=== PATIENT | female | born 1955 | race Caucasian/White ===

== ENCOUNTER 2021-10-15 10:05 | Emergency (ER) | payer BC ==
--- OUTSIDE RECORDS SUMMARY | 2021-10-15 10:07 | XMS REPORT | Continuity of Care Document ---
:1955 Author Organization [facility] t Address [address] [place] [address] Care Team Providers Name Role Phone Dedrick Yanez Attending Clinician Unavailable BRIDGETTE Attending Clinician Unavailable ORLANDO Attending Clinician Unavailable Cathy BRAGA Admitting Clinician Unavailable Payers Payer Name Policy Type Policy Number Effective Date Expiration Date S ource Problems This patient has no known problems. Allergies, Adverse Reactions, Alerts Allergy Allergy Status Severity Reaction(s) Onset Inactive Treating Comm ents Source Name Type Date Date Clinician Penicill DA Active U 2020-0 [facility] ciproflo DA Active SV 2020-0 [facility] xacin 04-06 00:[facility]: [facility] Penicill DA Active U UNKNOWN 2020-0 [facility] ins 04-06 [facility] ciproflo DA Active SV ANAPHYLAXIS 2020-0 [facility] xacin 04-06 00:00: [facility] Penicill DA Active U 2020-0 [facility] ins 03-26 00[facility]00: [facility] ciproflo DA Active SV 2020-0 [facility] xacin 03-26 00:00: [facility] Penicill DA Active U UNKNOWN 2020-0 [facility] ins 03-26 00:[facility]: [facility] ciproflo DA Active SV ANAPHYLAXIS 2020-0 [facility] xacin 03-26 00:00: [facility] Medications This patient has no known medications. Procedures This patient has no known procedures. Encounters Start End Encounter Admission Attending Care Care Encounter Source Date/Time Date/Time Type Type Clinicians Facility Department ID 2021-04-06 2021-04-06 Outpatient SD Rodriguez DAYS [id number] [facility] 09:24:00 09:24:00 Adeel [id number] [facility] 2021-03-26 2021-03-26 Inpatient SD Rodriguez SURG [id number] [facility] 10:00:00 10:00:00 Adeel [id number] [facility] 2021-03-18 2021-03-18 Outpatient SD Rodriguez RADI [id number] [facility] 08:51:00 08:51:00 Adeel [id number] [facility] [place] [facility] 2020-12-23 2020-12-23 Outpatient BRIDGETTE [facility] [id number] [place] 00:00:00 00:00:00 ISAC [address] 2020-12-02 2020-12-02 Outpatient [facility] [id number] [place] 00:00:00 00:00:[address] 2020-04-21 2020-04-21 Outpatient ORLANDO [facility] [id number] [place] 00:00:00 00:00:00 ARJUN [address] Results Test Description Test Time Test Comments Results Result [facility] e Comments - MRI LW JNT W/O 2021-03-18 CONT LT 16:28:00 [facility] : 1955 Sex: F Patient Name: ALMAZ VILLAVICENCIO Unit No: [id number] EXAMS: CPT CODE: [id number] MRI LW JNT W/[place] [id number] MRI OF THE LEFT KNEE DIAGNOSIS: Comparison is made with the previous examination of August 31, 2012. On the current examination there is a horizontal tear of the lateral meniscus through the superior articular surface. Progressive chondromalacia and degenerative change is noted with areas of partial-thickness cartilage loss and marginal osteophyte. Intra and extraosseous ganglion is seen in the posterior tibial plateau. A small joint effusion is present with at least one loose body. COMMENT: COMPARISON: August 31, 2012 Scans were performed in the sagittal, axial and coronal planes utilizing T1, spin density with fat saturation and T2-weighted pulse sequences. Bony and hyaline cartilage abnormalities are present as described. The lateral meniscus is torn. The medial meniscus is within normal limits in signal and configuration. No abnormality is seen involving the anterior or posterior cruciate or medial or lateral collateral ligaments. The quadriceps and patellar tendons are intact. at 1622 Reported and signed by: Ananth Ortiz MD CC: Adeel Yanez MD Technologist: COLTON ELLIS RT(R) Transcribed D/ ([id number]) [email or web address] [facility] NAME: AMLAZ VILLAVICENCIO [address] [facility] PHYS: Adeel Hernandez : 1955 AGE: 65 SEX: F [place] [address] LOC: Y.MRI PHONE #: [phone] EXAM DATE: 03/18/2021 STATUS: REG CLI FAX #: [phone] RAD #: D/C DT PAGE 1 Signed Report Patient Name: ALMAZ VILLAVICENCIO Unit No: [id number] EXAMS: CPT CODE: [id number] [place] LW JNT W/[place] [address] <Continued> Orig Print D/T: S: 03/18/2021 ([id number]) [facility] NAME: ALMAZ VILLAVICENCIO [address] [facility] PHYS: Adeel Hernandez : 1955 AGE: 65 SEX: F [place] [address] LOC: Y.MRI PHONE #: [phone] EXAM DATE: 03/18/2021 STATUS: REG CLI FAX #: [phone] RAD #: D/C DT PAGE 2 Signed Report
[2021-10-15] MEDS ORDERED: NA CHLORIDE 0.9% 1,000 ML ONE (10:47)
[2021-10-15 10:58] LABS: Hematocrit 43.9 % (36.0-45.0); Lymphocytes % 32.8 % (15.3-44.8); MPV 9.3 fL (7.6-11.3); Protime INR 0.95; RBC Red Blood Cell Count 4.94 M/uL (3.86-4.86)
[2021-10-15 11:15] LABS: ALT/SGPT 21 U/L (12-78); AST/SGOT 12 U/L (15-37); Albumin 3.6 g/dL (3.4-5.0); Alkaline Phosphatase 90 U/L (45-117); BUN Blood Urea Nitrogen 17 mg/dL (7-18); Bicarbonate 23 mmol/L (21-32); Bilirubin Direct < 0.1 mg/dL (0-0.2); Bilirubin Total 0.4 mg/dL (0.2-1.0); Glucose Level 85 mg/dL (74-106); Magnesium 2.2 mg/dL (1.8-2.4); NT PRO-BNP 51 pg/mL (<125); Potassium 3.8 mmol/L (3.5-5.1); Protein, Total 7.2 g/dL (6.4-8.2); Sodium Level 138 mmol/L (136-145)
--- NOTE | 2021-10-15 11:30 | RAD REPORT ---
EXAM DESCRIPTION: USExtrem Venous W Compress Bil10/15/2021 11:02 am CLINICAL HISTORY: Leg pain COMPARISON: 2012 FINDINGS: The common femoral, superficial femoral, popliteal and posterior tibial veins bilaterally are compressible and demonstrate augmentation. Doppler demonstrates good flow. IMPRESSION: No evidence of deep venous thrombosis involving either lower extremity.
--- NOTE | 2021-10-15 11:56 | RAD REPORT ---
EXAM DESCRIPTION: Linda Single View10/15/2021 10:53 am CLINICAL HISTORY: Cough COMPARISON: October 12, 2021 FINDINGS: The lungs appear clear of acute infiltrate. The heart is normal size IMPRESSION: No acute abnormalities displayed
--- NOTE | 2021-10-15 12:13 | RAD REPORT ---
EXAM DESCRIPTION: CT - Chest For Pe Angio - 10/15/2021 11:32 am CLINICAL HISTORY: Chest pain COMPARISON: None. TECHNIQUE: Dynamically enhanced axial 3 mm thick images of the chest were obtained during administra tion of <100> mL Isovue 370 IV contrast. Coronal and oblique reconstruction images were generated and reviewed. Exam utilizes a protocol for optimal evaluation of pulmonary arterial tree. Maximum intensity projections 3D imaging was utilized All CT scans are performed using dose optimization technique as appropriate and may include automated exposure control or mA/KV adjustment according to patient size. FINDINGS: A pulmonary embolus is not seen. A thoracic aortic aneurysm is not noted. A pleural effusion is not seen. A pericardial effusion is not seen. A lung consolidation is not present. Hepatic cysts. The largest measures 3.9 centimeters IMPRESSION: Negative for a pulmonary embolism.
--- NOTE | 2021-10-15 12:31 | ER ---
Nurse's Notes [facility] Name: Xochitl Raymond Age: 66 yrs Sex: Female : 1955 Arrival Date: 10/15/2021 Time: 10:07 Bed 25 Private MD: Monroe Stover V Diagnosis: Dyspnea Presentation: 10/15 10:20 Chief complaint: Patient states: SOB and dry cough. Saw her doctor on Monday. Covid ll1 and pneumonia were negative. Was called today and told to get US for r/o blood clot. Pain to L lateral chest/near breast area, states she fell onto L side Monday. Coronavirus screen: Vaccine status: Patient reports receiving the 2nd dose of the covid vaccine. Client denies travel out of the [place] in the last 14 days. cough unrelated to allergies, difficulty breathing, fatigue, muscle pain, Client presents with at least one sign or symptom that may indicate coronavirus-19. Standard/surgical mask placed on the client. Ebola Screen: Patient denies travel to an Ebola-affected area in the 21 days before illness onset. Initial Sepsis Screen: Does the patient meet any 2 criteria? No. Patient's initial sepsis screen is negative. Does the patient have a suspected source of infection? Yes: Productive cough/pneumonia. Risk Assessment: Do you want to hurt yourself or someone else? Patient reports no desire to harm self or others. Onset of symptoms was October 11, 2021. 10:20 Method Of Arrival: Ambulatory ll1 10:20 Acuity: ZOEY 3 ll1 Triage Assessment: 10:50 General: Appears in no apparent distress. Behavior is calm. jg9 Historical: - Allergies: 10:19 PENICILLINS; ll1 10:19 Ciprofloxacin; ll1 - PMHx: 10:19 DVT; ll1 - PSHx: 10:19 L leg SX; section; ll1 - Immunization history:: Client reports receiving the 2nd dose of the Covid vaccine. - Social history:: Smoking status: Patient denies any tobacco usage or history of. - Family history:: not pertinent. Screenin:49 Abuse screen: Denies threats or abuse. Denies injuries from another. Nutritional jg9 screening: No deficits noted. Tuberculosis screening: No symptoms or risk factors identified. Fall Risk None identified. Assessment: 10:48 Pain: Denies pain. Respiratory: Reports shortness of breath on exertion. jg9 Vital Signs: 10:20 BP 137 / 78; Pulse 67; Resp 17; Temp 98.1; Pulse Ox 96% on R/A; Weight 83.91 kg; Height ll1 5 ft. 6 in. (167.64 cm); Pain 2/10; 10:30 BP 120 / 70; Pulse 57; Resp 19 S; Pulse Ox 96% on R/A; jg9 11:45 BP 119 / 72; Pulse 66; Resp 16 S; Pulse Ox 99% on R/A; jg9 10:20 Body Mass Index 29.86 (83.91 kg, 167.64 cm) ll1 Vitals: 10:30 Cardiac Rhythm Assessment Sinus yas. jg9 ED Course: 10:07 Patient arrived in ED. as 10:07 Monroe Stover MD is Private Physician. as 10:15 Katya Benavidez, ANALILIA is Primary Nurse. jg9 10:16 Franklin Moran MD is Attending Physician. darleen 10:19 Arm band placed on Patient placed in an exam room, on a stretcher. ll1 10:23 Triage completed. ll1 10:44 Inserted saline lock: 22 gauge in left forearm, using aseptic technique. Blood jg9 collected. 10:49 Patient has correct armband on for positive identification. Bed in low position. Call jg9 light in reach. Side rails up X 1. 10:53 XRAY Chest (1 view) In Process Unspecified. EDMS 11:02 US Extremity Venous W Compression Vance In Process Unspecified. EDMS 11:32 CT Chest For PE Angio In Process Unspecified. EDMS 11:46 No apparent distress. Resting quietly. Awaiting lab results, Awaiting radiology results.jg9 12:27 Monroe Stover MD is Referral Physician. darleen 12:41 No provider procedures requiring assistance completed. jg9 12:41 IV discontinued. jg9 Administered Medications: 10:49 Drug: NS 0.9% 1000 ml Route: IV; Rate: 1 bolus; Site: left forearm; jg9 12:40 Follow up: IV Status: Completed infusion; IV Intake: 1000ml jg9 Intake: 12:40 IV: 1000ml; Total: 1000ml. jg9 Outcome: 12:30 Discharge ordered by MD. morejon 12:41 Discharged to home ambulatory. jg9 12:41 Condition: stable 12:41 Discharge instructions given to patient, Instructed on discharge instructions, follow up and referral plans. 12:42 Patient left the ED. jg9 Signatures: Dispatcher [employer] Franklin Díaz MD MD cha Martinez, Amelia as Lewis, Lynsay, RN RN ll1 Katya Benavidez RN RN jg9 Corrections: (The following items were deleted from the chart) 10:50 10:30 Cardiac Rhythm Assessment Sinus rhythm jg9 jg9 10:50 10:30 BP 120 / 70; Pulse 69bpm; Resp 19bpm; Spontaneous; Pulse Ox 96% RA; jg9 jg9
--- NOTE | 2021-10-15 12:31 | EDPHYS ---
Physician Documentation [facility] Name: Xochitl Raymond Age: 66 yrs Sex: Female : 1955 Arrival Date: 10/15/2021 Time: 10:07 Bed 25 Private MD: Monroe Stover V ED Physician Franklin Moran HPI: 10/15 12:10 This 66 yrs old Female presents to ER via Ambulatory with complaints of sent darleen by Jolanta r/o clot. 12:10 The patient has shortness of breath at rest, with light activity. Onset: The darleen symptoms/episode began/occurred 2 day(s) ago. Duration: The symptoms are chronic. The patient's shortness of breath has no apparent modifying factors. Associated signs and symptoms: The patient has no apparent associated signs or symptoms. Severity of symptoms: At their worst the symptoms were mild in the emergency department the symptoms are unchanged. The patient or guardian reports cough, that is constant. Severity of symptoms: At their worst the symptoms were mild, in the emergency department the symptoms are unchanged. Historical: - Allergies: 10:19 PENICILLINS; ll1 10:19 Ciprofloxacin; ll1 - PMHx: 10:19 DVT; ll1 - PSHx: 10:19 L leg SX; section; ll1 - Immunization history:: Client reports receiving the 2nd dose of the Covid vaccine. - Social history:: Smoking status: Patient denies any tobacco usage or history of. - Family history:: not pertinent. ROS: 12:10 Constitutional: Negative for fever, chills, and weight loss, Eyes: Negative for injury, darleen pain, redness, and discharge, ENT: Negative for injury, pain, and discharge, Neck: Negative for injury, pain, and swelling, Cardiovascular: Negative for chest pain, palpitations, and edema, Abdomen/GI: Negative for abdominal pain, nausea, vomiting, diarrhea, and constipation, Back: Negative for injury and pain, : Negative for injury, bleeding, discharge, and swelling, MS/Extremity: Negative for injury and deformity, Skin: Negative for injury, rash, and discoloration, Neuro: Negative for headache, weakness, numbness, tingling, and seizure, Psych: Negative for depression, anxiety, suicide ideation, homicidal ideation, and hallucinations, Allergy/Immunology: Negative for hives, rash, and allergies, Endocrine: Negative for neck swelling, polydipsia, polyuria, polyphagia, and marked weight changes, Hematologic/Lymphatic: Negative for swollen nodes, abnormal bleeding, and unusual bruising. 12:10 Respiratory: Positive for cough, shortness of breath, at rest. Exam: 12:10 Constitutional: This is a well developed, well nourished patient who is awake, alert, darleen and in no acute distress. Head/Face: Normocephalic, atraumatic. Eyes: Pupils equal round and reactive to light, extra-ocular motions intact. Lids and lashes normal. Conjunctiva and sclera are non-icteric and not injected. Cornea within normal limits. Periorbital areas with no swelling, redness, or edema. ENT: Nares patent. No nasal discharge, no septal abnormalities noted. Tympanic membranes are normal and external auditory canals are clear. Oropharynx with no redness, swelling, or masses, exudates, or evidence of obstruction, uvula midline. Mucous membranes moist. Neck: Trachea midline, no thyromegaly or masses palpated, and no cervical lymphadenopathy. Supple, full range of motion without nuchal rigidity, or vertebral point tenderness. No Meningismus. Chest/axilla: Normal chest wall appearance and motion. Nontender with no deformity. No lesions are appreciated. Cardiovascular: Regular rate and rhythm with a normal S1 and S2. No gallops, murmurs, or rubs. Normal PMI, no JVD. No pulse deficits. Respiratory: Lungs have equal breath sounds bilaterally, clear to auscultation and percussion. No rales, rhonchi or wheezes noted. No increased work of breathing, no retractions or nasal flaring. Abdomen/GI: Soft, non-tender, with normal bowel sounds. No distension or tympany. No guarding or rebound. No evidence of tenderness throughout. Back: No spinal tenderness. No costovertebral tenderness. Full range of motion. Female : Normal external genitalia. Skin: Warm, dry with normal turgor. Normal color with no rashes, no lesions, and no evidence of cellulitis. MS/ Extremity: Pulses equal, no cyanosis. Neurovascular intact. Full, normal range of motion. Neuro: Awake and alert, GCS 15, oriented to person, place, time, and situation. Cranial nerves II-XII grossly intact. Motor strength 5/5 in all extremities. Sensory grossly intact. Cerebellar exam normal. Normal gait. Psych: Awake, alert, with orientation to person, place and time. Behavior, mood, and affect are within normal limits. 12:31 ECG was reviewed by the Attending Physician. [facility] Vital Signs: 10:20 BP 137 / 78; Pulse 67; Resp 17; Temp 98.1; Pulse Ox 96% on R/A; Weight 83.91 kg; Height ll1 5 ft. 6 in. (167.64 cm); Pain 2/10; 10:30 BP 120 / 70; Pulse 57; Resp 19 S; Pulse Ox 96% on R/A; jg9 11:45 BP 119 / 72; Pulse 66; Resp 16 S; Pulse Ox 99% on R/A; jg9 10:20 Body Mass Index 29.86 (83.91 kg, 167.64 cm) ll1 MDM: 10:16 Patient medically screened. [facility] 12:20 Differential diagnosis: Anemia Anxiety Reaction asthma, CHF exacerbation, Chronic darleen Obstructive Pulmonary Disease pneumonia, pulmonary edema, Pulmonary Embolism reactive airway disease, Unstable Angina. Antibiotic administration: Not indicated. The patient's Wells Deep Vein Thrombosis Score was calculated as follows: Total Score: 0-2 Pts- Low Risk. Differential Diagnosis: Obstructed Airway Bronchitis Influenza Upper Respiratory Infection Sinusitis Pharyngitis Viral Syndrome Pneumonia. The patient's pulmonary embolism risk score was calculated as follows: Total Score: 0-2 points. This patient was found to be at low risk for a pulmonary embolism by using the Well's assessment criteria. Immunization status: Influenza vaccine: within last 5 years. Data reviewed: vital signs, nurses notes, lab test result(s), EKG, radiologic studies, CT scan, doppler, plain films. Data interpreted: potline monitor: rate is 66 beats/min, rhythm is regular, Pulse oximetry: on room air is 99 %. Test interpretation: by ED physician or midlevel provider: ECG, plain radiologic studies. Counseling: I had a detailed discussion with the patient and/or guardian regarding: the historical points, exam findings, and any diagnostic results supporting the discharge/admit diagnosis, lab results, radiology results, the need for outpatient follow up, for definitive care, 10/15 10:17 Order name: Basic Metabolic Panel; Complete Time: 12:03 [facility] 10/15 10:17 Order name: CBC with Diff; Complete Time: 12:03 darleen 10/15 10:17 Order name: LFT's; Complete Time: 12:03 [facility] 10/15 10:17 Order name: Magnesium; Complete Time: 12:03 darleen 10/15 10:17 Order name: NT PRO-BNP; Complete Time: 12:03 10/15 10:17 Order name: PT-INR; Complete Time: 12:03 [facility] 10/15 10:17 Order name: Troponin HS; Complete Time: 12:03 10/15 10:17 Order name: XRAY Chest (1 view); Complete Time: 12:03 10/15 10:17 Order name: EKG; Complete Time: 10:18 [facility] 10/15 10:17 Order name: Cardiac monitoring; Complete Time: 10:43 [facility] 10/15 10:17 Order name: EKG - Nurse/Tech; Complete Time: 10:43 10/15 10:17 Order name: US Extremity Venous W Compression Vance; Complete Time: 12:03 [facility] 10/15 10:17 Order name: CT Chest For PE Angio; Complete Time: 12:26 [facility] 10/15 10:17 Order name: IV Saline Lock; Complete Time: 10:43 10/15 10:17 Order name: Labs collected and sent; Complete Time: 10:49 [facility] 10/15 10:17 Order name: O2 Sat Monitoring; Complete Time: 10:44 darleen EC:31 Rate is 66 beats/min. Rhythm is regular. QRS Norris is Normal. GA interval is normal. QRS darleen interval is normal. QT interval is normal. No Q waves. T waves are Normal. No ST changes noted. Clinical impression: NSR w/ Non-specific ST/T Changes and No evidence of ischemia. Interpreted by me. Reviewed by me. Administered Medications: 10:49 Drug: NS 0.9% 1000 ml Route: IV; Rate: 1 bolus; Site: left forearm; jg9 12:40 Follow up: IV Status: Completed infusion; IV Intake: 1000ml jg9 Disposition Summary: 10/15/21 12:30 Discharge Ordered Location: Home darleen Problem: new darleen Symptoms: have improved darleen Condition: Stable darleen Diagnosis - Dyspnea darleen Followup: darleen - With: Monroe Stover MD - When: 2 - 3 days - Reason: Recheck today's complaints, Continuance of care, Re-evaluation by your physician Discharge Instructions: - Discharge Summary Sheet darleen - Shortness of Breath, Adult darleen - Shortness of Breath, Adult, [id number] darleen Forms: - Medication Reconciliation Form darleen - Thank You Letter darleen - Antibiotic Education darleen - Prescription Opioid Use darleen Signatures: Dispatcher [employer] Franklin Díaz MD MD cha Lewis, Lynsay, RN RN ll1 Katya Benavidez RN RN jg9
[2021-10-15 12:55] VITALS: TEMP 98.1
[2021-10-15 12:58] VITALS: BP 119/72; O2SAT 99
--- NOTE | 2021-10-16 15:14 | EKG ---
Test Date: 2021-10-15 Test Time: 10:30:17 Blending Supervisor: ADELIA MEASUREMENT RESULTS: Intervals: Rate: 52 TN: 178 QRSD: 74 QT: 400 QTc: 372 [place]: P: 42 TN: 178 QRS: -25 T: 34 INTERPRETIVE STATEMENTS: Sinus bradycardia Otherwise normal ECG No previous ECG available for comparison Electronically Signed On 10-16-21 15:14:01 RENAL DIALYSIS RN by Neel Martinez
== END 2021-10-15 12:42 | disposition home or self-care (01) ==
LOC: ER 10:05
DX: R06.00 Dyspnea, unspecified (principal); Z88.0 Allergy status to penicillin; Z88.1 Allergy status to other antibiotic agents
CPT/HCPCS: 96361; 93005; 85025; 80048; 36415; 83735; 85610; 80076; 84484; 83880; 71275; 71045; 93970; 96360; 99284; Q9967; J7030